=== PATIENT | male | born 2000 | race Hispanic/Latino ===

== ENCOUNTER 2021-02-23 10:19 | Emergency (ER) | payer OTHER ==
[2021-02-23 10:26] VITALS: BP 154/85
--- NOTE | 2021-02-23 11:17 | Emergency Department Report ---
ED General Adult HPI - General Chief complaint: Medical Clearance Stated complaint: medical clearance PUI?: No Time Seen by Provider: 02/23/21 11:17 Source: patient, RN notes reviewed Mode of arrival: Ambulatory Limitations: No Limitations - History of Present Illness Initial comments: This patient is a pleasant and cooperative 20-year-old gentleman. He is not known to myself previously. He denies chronic medical conditions. He presents to the ER today with a request for medical clearance. The [place], and was cleaning with an industrial cleaning solution; [employer] He reports that he had on appropriate facial protection, goggles, and personal protective equipment. He reports that he believes that there was a small crack in his mask, and he believes that a drop or 2 of the cleaning solution got onto his lower lip, and he inadvertently swallowed 1 or 2 drops of the cleaning solution. He felt some burning, and some discomfort, which is now resolved. He states that immediately thereafter, he decontaminated, and irrigated and washed his face and mouth very thoroughly with water. He has no complaints at this time. He feels back to his baseline. He feels minimally anxious at this time. However, he feels like he is back to his baseline. The exposure and reported ingestion happened at or around 9:00 AM. -: Sudden Location: mouth Severity scale (0 -10): 0 Consistency: now resolved Improves with: other (Irrigation and decontamination) Worsens with: none Associated Symptoms: denies other symptoms, other (Minimal anxiety) ED Review of Systems ROS: Stated complaint: ingestion Other details as noted in HPI Constitutional: denies: fever Eyes: denies: eye discharge ENT: denies: throat pain, dental pain, hearing loss, epistaxis Respiratory: denies: cough, shortness of breath Cardiovascular: denies: chest pain Gastrointestinal: denies: abdominal pain, nausea, vomiting, diarrhea, constipation, hematemesis, melena, hematochezia Musculoskeletal: denies: back pain Neurological: denies: weakness Psychiatric: anxiety ED Physical Exam - General Limitations: No Limitations General appearance: alert, anxious, obese - Head Head exam: Present: atraumatic, normocephalic - Eye Eye exam: Present: normal appearance, EOMI. Absent: nystagmus - ENT ENT exam: Present: normal exam, normal orophraynx, mucous membranes moist, normal external ear exam, other (The patient is not stridulous. The patient is speaking in full sentences. There is no elevation of the base of the tongue. No obvious chemical orlando are noted on the lips, tongue, oropharynx.) - Neck Neck exam: Present: normal inspection, full ROM. Absent: tenderness, meningismus - Respiratory Respiratory exam: Present: normal lung sounds bilaterally. Absent: respiratory distress, wheezes, rales, rhonchi, stridor, decreased breath sounds - Cardiovascular Cardiovascular Exam: Present: regular rate, normal rhythm, normal heart sounds. Absent: bradycardia, tachycardia, irregular rhythm, systolic murmur, diastolic murmur, rubs, gallop - GI/Abdominal GI/Abdominal exam: Present: soft. Absent: distended, tenderness, guarding, rebound, rigid, pulsatile mass - Rectal Rectal exam: Present: deferred - Extremities Exam Extremities exam: Present: normal inspection, full ROM, other (2+ pulses noted in the bilateral upper extremities. There is no long bony tenderness. The muscular compartments are soft. The pelvis is stable.). Absent: pedal edema, calf tenderness - Back Exam Back exam: Present: normal inspection, full ROM. Absent: tenderness, CVA tenderness (R), CVA tenderness (L), paraspinal tenderness, vertebral tenderness - Neurological Exam Neurological exam: Present: alert, oriented X3, normal gait, other (No facial droop. Tongue midline. Extraocular movements intact bilaterally. Facial sensation intact to light touch in V1, V2, V3 distribution bilaterally. 5 and a 5 strength in 4 extremities. Sensation intact to light touch in 4 extremities.). Absent: motor sensory deficit - Psychiatric Psychiatric exam: Present: anxious - Skin Skin exam: Present: warm, other (Facial acne is appreciated) ED Course Vital Signs 02/23/21 10:25 Temperature 98.1 F Pulse Rate 107 H Respiratory 17 Rate Blood Pressure 154/85 [Left] O2 Sat by Pulse 100 Oximetry - Reevaluation(s) Reevaluation #1: 02/23/21 11:48 We discussed with [facility], Mr. Rosario He advises that no additional intervention or therapy is necessary. Discussed this with the patient. All questions answered. Return precautions reviewed. ED Medical Decision Making - Lab Data Vital Signs 02/23/21 10:25 Temperature 98.1 F Pulse Rate 107 H Respiratory 17 Rate Blood Pressure 154/85 [Left] O2 Sat by Pulse 100 Oximetry - Medical Decision Making Differential diagnosis, including but not limited to: Work-related chemical exposure, encounter for medical screening examination Assessment and plan: 20-year-old gentleman, with resolved tachycardia on my physical examination, who is otherwise afebrile, with reassuring vital signs, with an unremarkable upper airway examination, without stridor, dysphonia, protecting airway, with clear lung sounds, with no physical exam evidence of chemical orlando to the head, face, neck or mouth. He irrigated very thoroughly after the exposure. He has no acute intraoral airway complaints or examination findings at this time. Contacted Poison Control Center. Discussed the case with Mr. Rosario He is currently reviewing the patient's chemical exposure, and industrial paperwork, further recommendations are forthcoming Critical care attestation.: If time is entered above; I have spent that time in minutes in the direct care of this critically ill patient, excluding procedure time. ED Disposition Clinical Impression: Chemical exposure, Encounter for medical screening examination Disposition: 01 HOME / SELF CARE / HOMELESS Is pt being admited?: No Does the pt Need Aspirin: No Condition: Stable Instructions: Medical Screening Exam Additional Instructions: The patient was not found to have an emergent medical condition present today. Since the patient was wearing personal protective equipment, adequately irrigated and decontaminated the area after the exposure, no additional therapy is needed. The patient should continue to wear adequate personal protective equipment at work. The patient should follow-up with his primary care doctor within the next 4 to 6 weeks, or as needed. If the patient develops any symptoms, such as chest pain, shortness of breath, inability to speak, inability to breathe, or any new, worsened or different symptoms not present on the in itial emergency room evaluation, he should return to the emergency room right away. At this point time, this patient does not have an immediate medical contraindication to discharge, and he is medically suitable to return to work in full capacity immediately. Referrals: [facility] [Provider Group] - 3-5 Days Forms: Work/School Release Form(ED)
== END 2021-02-23 12:23 | disposition home or self-care (01) ==
LOC: ED 10:19
DX: Z77.098 Contact with and (suspected) exposure to other hazardous, chiefly nonmedicinal, chemicals (principal)
CPT/HCPCS: 99282